=== PATIENT | male | born 1950 | race Caucasian/White ===

== ENCOUNTER 2016-11-20 10:27 | Day surgery (SDC) | payer MEDICARE ==
[~2016-11-20] VITALS: Ht 175.3 cm; Wt 79.4 kg
[~2016-11-20 10:27] MED LIST: 0.9% Sodium Chloride 1,000 ML IV SCH; ALBU18HF INH; ALBU8.5H2 INHALATION; ATOR20TA PO; FLUT15.88 NS; SILD20TA PO; Sodium Chloride LOK Flush 10 mL Syringe IV PRN; TAMS0.4C98 PO; fentaNYL-PF 50 mCg/mL 2 mL Inj IVPUSH PRN
[2016-11-20 10:40] VITALS: BP 145/75; PULSE 57; RESP 18; O2SAT 100
[2016-11-20] MEDS ORDERED: PSYL1PAC10 PO (10:50)
[2016-11-20 12:19] VITALS: BP 114/63; PULSE 67; RESP 14; O2SAT 94
[2016-11-20 12:29] VITALS: BP 126/64; PULSE 62; RESP 16; O2SAT 93
[2016-11-20 12:39] VITALS: BP 126/69; PULSE 69; RESP 16; O2SAT 96
--- NOTE | 2016-11-20 16:02 | ENDO ---
[address] [address] ENDOSCOPY PROCEDURE PATIENT: LUIS MIGUEL MIXON : 1950 MR#: [id number] ADMIT: 11/20/2016 JOB ID: [id number] DATE: 11/20/2016 PROCEDURE: Colonoscopy. INDICATION: Screening. The patient's ASA classification is 2. Mallampati score is 2. MEDICATIONS: 1. Versed 5 mg. 2. Fentanyl 125 mcg. INSTRUMENT USED: PCF H 180 AL. PREPARATION QUALITY: Was fair. PROCEDURE DETAILS: After informed consent was obtained, the patient was brought into the GI suite, where he was placed on oxygen via nasal cannula and monitored with continuous pulse oximeter, telemetry and blood pressure monitoring. A time-out was performed. Then, he was placed in the left lateral decubitus position. Medications were administered for sedation. Digital rectal examination was performed with palpation of the prostate, which was unremarkable. The colonoscope was then inserted into the rectum and advanced under direct visualization to the cecum, which was identified by the presence of the ileocecal valve and appendiceal orifice. Once the cecum was reached, the colonoscope was withdrawn back into the rectum as the mucosa and lumen were examined. In the rectum, retroflexion was performed. Following retroflexion, remaining air in the rectum was suctioned and procedure was completed. FINDINGS: 1. In the cecum, there was an approximately 5 mm sessile polyp that was removed with a cold snare. 2. In the descending colon, there was an approximately 5 mm sessile polyp that was removed with a cold snare. 3. Scattered diverticula were seen throughout the sigmoid colon. 4. 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 IMPRESSION: 1. Cecal polyp. 2. Descending colon polyp. 3. Left sigmoid diverticulosis. 4. Radiation proctitis. RECOMMENDATIONS: 1. Repeat colonoscopy in five years. 2. No need for treatment of radiation proctitis at this time as patient is asymptomatic without any rectal bleeding. COMPLICATIONS: None. ESTIMATED BLOOD LOSS: Less than 5 mL.
--- NOTE | 2016-11-24 15:19 | PATH ---
SURGICAL PATHOLOGY Attending Physician:Haylee Vasquez CASE STATUS: Signed Out PATIENT NAME: LUIS MIGUEL MIXON PID: [id number] : 1950 DATE COLLECTED:11/20/2016 21:56 SPECIMEN: 1: Colon, Biopsy 2: Colon, Biopsy CLINICAL HISTORY: 1). CECAL POLYP X1 2). DESCENDING POLYP X1 FINAL DIAGNOSIS: 1. Cecal Polyp, Biopsy: Multiple portions (approximately 4) of tubular adenoma; negative for high-grade dysplasia. 2. Descending Polyp, Biopsy: Tubular adenoma; negative for high-grade dysplasia. ICD10: K63.5 GROSS DESCRIPTION: Received are two formalin-filled containers, both labeled with the patient' s name: 1. Received in formalin, labeled with the patient' s name and "cecal", are multiple fragments of ambrocio, soft tissue ranging in size from less than 0.1 cm by less than 0.1 cm by less than 0.1 cm to 0.1 x 0.1 x 0.1 cm. All fragments are totally submitted in cassette 1A. 2. Received in formalin, labeled with the patient' s name and "decend", is one fragment of ambrocio, soft tissue measuring 0.2 x 0.2 x 0.1 cm. The fragment is totally submitted in cassette 2A. ([id number]) ICD-9 CODES: CPT CODES: 1: 70021 2: 95721 Electronically Signed Out Andie Palma MD [facility]ology [facility] [address], [place] [address] Technical component performed at [facility], [facility] [address], [place], [address]
== END 2016-11-20 23:59 | disposition home or self-care (01) ==
LOC: END 10:27
PROVIDERS: ATTEND Internal Medicine Gastroenterology
DX: Z12.11 Encounter for screening for malignant neoplasm of colon (principal); D12.0 Benign neoplasm of cecum; D12.4 Benign neoplasm of descending colon; K62.7 Radiation proctitis; W88.1XXA Exposure to radioactive isotopes, initial encounter; Z85.46 Personal history of malignant neoplasm of prostate; E78.5 Hyperlipidemia, unspecified; K57.30 Diverticulosis of large intestine without perforation or abscess without bleeding
CPT/HCPCS: 45385; G0500; J2250; J3010; J7030